=== PATIENT | female | born 2000 | race Caucasian/White ===

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

== ENCOUNTER 2021-01-10 09:00 | Emergency (ER) | payer BC, OTHER ==
[~2021-01-10] VITALS: Ht 160 cm; Wt 64.4 kg
[~2021-01-10 09:00] MED LIST changes: +KEFLEX500 MG PO; +XULANE PATCH1 EACH TD
[2021-01-10] MEDS ORDERED: ONDANSETRON ODT4 MG PO (09:28)
[2021-01-10] MEDS ORDERED: PRENATAL VITAM1 EAC9 PO (09:28)
[2021-01-10] MEDS ORDERED: LO-DOSE ASPIRIN81 MG PO (09:28)
[2021-01-10] MEDS ORDERED: CEPHALEXIN500 M1 PO (12:22)
== END 2021-01-10 12:49 | disposition home or self-care (01) ==
LOC: ED 09:00
DX: O99.612 Diseases of the digestive system complicating pregnancy, second trimester (principal); K59.00 Constipation, unspecified; O99.891 Other specified diseases and conditions complicating pregnancy; R82.71 Bacteriuria; Z3A.18 18 weeks gestation of pregnancy; Z79.82 Long term (current) use of aspirin
CPT/HCPCS: 76815; 80053; 81001; 83690; 84702; 85025; 87088; 99284-25

== ENCOUNTER 2021-06-07 11:09 | Inpatient (IN) | payer OTHER ==
[~2021-06-07] VITALS: Ht 162.6 cm; Wt 74.8 kg
--- NOTE | ~2021-06-07 | OR ---
[facility] [address], [place] [address] Draft DATE OF OPERATION: 06/08/2021 SURGEON: Mulugeta Rocha DO EGG GATHERER: Sarbjit Tenorio MD PROCEDURE: Primary low transverse . 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 POSTOPERATIVE DIAGNOSES: Term delivered, active HSV at 39 weeks gestation. ANESTHESIA: Spinal. BLOOD LOSS: 450 mL. COMPLICATIONS: None. FINDINGS: A 7 pounds 4 ounces viable term female with Apgars of 8 and 9 at 1 and 5 minutes respectively. Normal-appearing uterus, tubes, and ovaries free of adhesion or anatomic variation. INDICATION: The patient is a 20-year-old G3, P0-0-2-0, who presented for outpatient appointments at 38 weeks gestation complaining of active genital HSV outbreak. Risks, benefits, and alternatives to primary as mode of delivery to reduce risk of HSV transmission were reviewed. I did discuss that transmission risk cannot be completely eliminated, but can be reduced by primary and she elected to proceed. DESCRIPTION OF PROCEDURE: The patient was taken back to the operating room where she was given 2 g Ancef and positioned supine position with a leftward tilt. She was prepped and draped in a normal PATIENT NAME: ALIVIA BRYANT OPERATIVE REPORT DATE OF : 99 REPORT #: [id number] PHYSICIAN: MULUGETA ROCHA DO PCP: NO PRIMARY CARE PHYSICIAN REPORT IS CONFIDENTIAL AND NOT TO BE RELEASED WITHOUT AUTHORIZATION [facility] [address], [place] [address] Draft sterile fashion. Casey catheter was inserted. A Pfannenstiel incision was made with a scalpel and carried down to the underlying layer of fascia with Bovie cautery, cauterizing perforating vessels as they were encountered. The fascia was incised in midline and extended laterally with Hu scissors. The inferior margin of fascia was grasped and elevated with Brittany clamps. Underlying rectus muscle was dissected off bluntly and sharply with Hu scissors. In a similar fashion, the superior margin of fascia was grasped and elevated with Brittany's. Underlying rectus muscle dissected off bluntly and sharply with Hu scissors. Peritoneum was entered bluntly and extended laterally with gentle traction. Sebastien retractor was placed. Hysterotomy was made with a scalpel. Amniotomy was performed. 's head was easily elevated to the level of the hysterotomy and delivered through without complication. No nuchal cord was noted. Baby gave a strong spontaneous cry immediately upon delivery. Cord was doubly clamped and cut and baby was handed off to waiting nursery team. Cord blood was collected for type and Steve and section of cord was collected in case further assessment is needed in the future. The placenta was delivered manually and noted to be intact. Uterus was cleaned of clots and debris and hysterotomy was closed in a double-layer closure with 0 Monocryl 1st in a running fashion and 2nd in an imbricating fashion. Following 2nd layer of closure, hysterotomy was noted to be hemostatic. The pelvis was suctioned and irrigated with warm sterile saline. Tubes and ovaries were inspected with normal findings as noted above and hysterotomy was reinspected final time and noted to have excellent hemostasis. Peritoneum was closed with 2-0 Vicryl in a running fashion. Fascia was closed using rectus muscles and reapproximated with 0 Vicryl and perforating vessels were cauterized with Bovie cautery. The fascia was closed with 0 Vicryl in a running fashion, working 1st right apex to midline, then left apex to midline meeting in the middle with excellent reapproximation noted. Subcu layer was closed with 3-0 Vicryl in a running fashion after cauterization of perforating vessels with Bovie cautery. The skin was closed with skin clips. All instruments and sponge counts were correct and uterus was Crede'd and noted to have minimal bleeding. The patient was taken to recovery in stable and satisfactory condition where anesthesia placed TAP blocks for improved patient's comfort. Mulugeta Rocha DO EMZ/MODL /[id number] PATIENT NAME: ALIVIA BRYANT OPERATIVE REPORT DATE OF : 99 REPORT #: [id number] PHYSICIAN: MULUGETA ROCHA DO PCP: NO PRIMARY CARE PHYSICIAN REPORT IS CONFIDENTIAL AND NOT TO BE RELEASED WITHOUT AUTHORIZATION [facility] [address] [facility] [place], [place] [address] Draft Copies: ~ PATIENT NAME: ALIVIA BRYANT OPERATIVE REPORT DATE OF : 99 REPORT #: [id number] PHYSICIAN: MULUGETA ROCHA DO PCP: NO PRIMARY CARE PHYSICIAN REPORT IS CONFIDENTIAL AND NOT TO BE RELEASED WITHOUT AUTHORIZATION
[~2021-06-07 11:09] MED LIST changes: +CEPHALEXIN500 M1 PO; +LO-DOSE ASPIRIN81 MG PO; +ONDANSETRON ODT4 MG PO; +PRENATAL VITAM1 EAC9 PO
--- NOTE | 2021-06-08 05:19 | NUR ---
PT WAS SWABBED FOR COVID 19
[2021-06-08] MEDS ORDERED: ACYCLOVIR400 MG PO (06:11)
[2021-06-08] MEDS ORDERED: MAGNESIUM250 M1 PO (06:12)
[2021-06-08] MEDS ORDERED: VENTOLIN HFA18 GM (06:12)
--- NOTE | 2021-06-08 08:44 | NUR ---
06/08/21 0844 Colleen Mckeon 0835-PATIENT ARRIVED TO RECOVERY ROOM 104 AWAKE DENIES PAIN OR NAUSEA. SPINAL LEVEL T10. RA 98% RR EVEN. STEWART CATHETER DRAINING YELLOW URINE. IVF INFUSING WITH LR 20 PITOCIN INTO RIGHT ARM CDI. FUNDUS 2 BELOW UMBILICUS FIRM LIGHT RUBRA DRAINAGE. SR. MOM AT BEDSIDE. 0840-PATIENT AWAKE DENIES PAIN OR NAUSEA ON TELEPHONE. MARISOL AT BEDSIDE DOING TAP BLOCKS ON PATIENT.
--- NOTE | 2021-06-09 07:23 | PR ---
[facility] [address] [place], [place] [address] Signed PP Progress Notes Datetime Report Generated by JESSI: 06/09/2021 07:23 SUBJECTIVE: [id number] Pain: Within Normal Limits Nausea/Vomiting: Denies Flatus: Yes Bowel Movement: No Vital Signs: [id number] Vital Signs: Reviewed EXAM: Ongoing Cardiovascular: Normal Respiratory: Normal Abdomen/Uterus: Normal Lochia: Normal Extremities: Normal Incision: Normal Progress: Normal Exam Comments: NAD, sitting in bed RRR No dyspnea, retractions Abd SNTND, FFBU Ext: trace BLLE edema, Neg Queta's BL IMPRESSION/PLAN/PROCEDURES: [id number] Impression: Normal Progression Plan: Continue Present Management Progress Notes: POD#1 s/p PTLCS - seen and examined, as above - progressing well , pain well controlled with orals/ toradol/ TAP block - lochia moderate - ambulating/ voiding/ tolerating regular diet - well, working on latch Continue / postop care Anticipate DC to home tomorrow vs Monday Signing Physician: Debbie Cramer MD Copies: *Electronically Signed* 06/09/21722 DEBBIE CRAMER MD PATIENT NAME: ALIVIA BRYANT PROGRESS NOTE DATE OF : 99 PHYSICIAN: DEBBIE CRAMER MD RPT #: [id number] REPORT IS CONFIDENTIAL AND NOT TO BE RELEASED WITHOUT AUTHORIZATION [address] [address] Signed ~ *Electronically Signed* 06/09/21 0723 DEBBIE CRAMER MD PATIENT NAME: ALIVIA BRYANT PROGRESS NOTE DATE OF : 99 PHYSICIAN: DEBBIE CRAMER MD RPT #: [id number] REPORT IS CONFIDENTIAL AND NOT TO BE RELEASED WITHOUT AUTHORIZATION
== END 2021-06-10 13:10 | disposition home or self-care (01) | DRG 788 ==
LOC: FBC 06-08 04:59
PROVIDERS: ADMIT Obstetrics & Gynecology; ATTEND Obstetrics & Gynecology
PROC: 10D00Z1 Extraction of Products of Conception, Low, Open Approach (ICD-10-PCS; principal; 2021-06-08 07:00)
DX: O98.32 Other infections with a predominantly sexual mode of transmission complicating childbirth (principal); Z3A.39 39 weeks gestation of pregnancy; Z37.0 Single live birth; Z20.822 Contact with and (suspected) exposure to COVID-19; Z86.16 Personal history of COVID-19; A60.00 Herpesviral infection of urogenital system, unspecified; O99.52 Diseases of the respiratory system complicating childbirth; J45.909 Unspecified asthma, uncomplicated; O99.824 Streptococcus B carrier state complicating childbirth; Z79.899 Other long term (current) drug therapy
CPT/HCPCS: 36415; 76942; 85027; 86850; 86900; 86901; A9270; J0690; J1100; J1885; J2001; J2274; J2300; J2370; J2405; J2590; J2765; J2795; J3010; J7121; U0003